=== PATIENT | female | born 1990 | race African-American/Black ===

== ENCOUNTER 2016-03-11 07:48 | Day surgery (SDC) | payer BC ==
[2016-03-11] MEDS ORDERED: MIDAZOLAM 2 MG/2 ML VIAL ONE (09:33)
[2016-03-11] MEDS ORDERED: PROPOFOL 200 MG/20 ML VIAL ONE (09:33)
[2016-03-11] MEDS ORDERED: fentaNYL 100 MCG/2 ML INJ ONE ×2 (09:33→10:58)
--- NOTE | 2016-03-11 11:23 | GPN ---
[f rep st] PROCEDURE NOTE DATE OF PROCEDURE: 03/11/2016 PROCEDURE: Esophagogastroduodenoscopy with biopsy. INDICATION: The patient is a 25-year-old female who presents with complaints of nausea, vomiting, and diarrhea. CONSENT: Risks, benefits, and alternatives of the procedure were discussed in great detail with the patient. Risks of infection, bleeding, perforation, and sedation were discussed. All questions were answered. Informed consent was obtained. MEDICATIONS: Propofol. Please see Anesthesiology report for details. ESTIMATED BLOOD LOSS: Insignificant. ESOPHAGOGASTRODUODENOSCOPY EXAMINATION: The Olympus upper endoscope was introduced into the mouth and advanced to the esophagus. The proximal, mid, and distal esophagus were normal in appearance. The stomach was entered and closely examined, including retroflexed views of angularis, cardia and fundus. She was noted to have a small hiatal hernia. The mucosa in the antrum and the body of stomach was erythematous in a patchy distribution and biopsies were taken. In the duodenal bulb on the anterior wall, mild nodularity was noted and biopsies were taken. The second portion duodenum was normal in appearance. Biopsies were taken to rule out celiac sprue. IMPRESSION: 1. Gastritis, status post biopsy. 2. Hiatal hernia. 3. Biopsies taken to rule out celiac sprue. 4. Nodularity noted in the duodenal bulb status post biopsy. 5. No obvious cause of her symptoms seen. RECOMMENDATION: 1. Await biopsy results. 2. Proceed with colonoscopy. 3. More recommendations on colonoscopy report. /[id number]/MODL MTDD
--- NOTE | 2016-03-16 07:36 | GPN ---
[f rep st] PROCEDURE NOTE DATE OF PROCEDURE: 03/11/2016 PROCEDURE: Colonoscopy with biopsy. INDICATION: The patient is a 25-year-old female who presents with complaints of diarrhea and abdominal pain. She had recent blood work which revealed a CRP of greater than 200. She presents for further evaluation. CONSENT: Risks, benefits, and alternatives of the procedure were discussed in great detail with the patient. Risk of infection, bleeding, perforation, and sedation were discussed. All questions answered. Informed consent obtained. MEDICATIONS: Propofol. Please see anesthesiology for details. ESTIMATED BLOOD LOSS: Insignificant. COLONOSCOPIC EVALUATION: A rectal exam was done and no palpable mass was felt. The scope was introduced into the rectum and advanced to the terminal ileum. The terminal ileum was normal in appearance and biopsies were taken. The mucosa from the rectum to the cecum was erythematous, friable, with loss of vascular pattern and had superficial ulcerations consistent with severe colitis. The rectum appeared to be slightly less inflamed than the rest of the colon. Multiple biopsies were taken throughout the colon. IMPRESSION: 1. Colitis status post biopsy. Suspect Ulcerative colitis? 2. Biopsies taken of the ileum. 3. Suspected this is inflammatory bowel disease. Prior stool studies are negative. RECOMMENDATIONS: 1. Follow up on biopsy results. 2. Start prednisone. 3. Follow up in the office in 2 weeks. /[id number]/MODL MTDD
== END 2016-03-11 12:30 | disposition home or self-care (01) ==
LOC: FSGY 07:48
PROVIDERS: ATTEND Internal Medicine Gastroenterology
PROC: 0DBB8ZX Excision of Ileum, Via Natural or Artificial Opening Endoscopic, Diagnostic (ICD-10-PCS; 2016-03-11)
PROC: 0DBP8ZX Excision of Rectum, Via Natural or Artificial Opening Endoscopic, Diagnostic (ICD-10-PCS; 2016-03-11)
PROC: 0DBE8ZX Excision of Large Intestine, Via Natural or Artificial Opening Endoscopic, Diagnostic (ICD-10-PCS; 2016-03-11)
PROC: 0DB68ZX Excision of Stomach, Via Natural or Artificial Opening Endoscopic, Diagnostic (ICD-10-PCS; principal; 2016-03-11 09:15)
PROC: 0DB98ZX Excision of Duodenum, Via Natural or Artificial Opening Endoscopic, Diagnostic (ICD-10-PCS; 2016-03-11 09:15)
DX: K52.9 Noninfective gastroenteritis and colitis, unspecified (principal); K29.70 Gastritis, unspecified, without bleeding; R19.7 Diarrhea, unspecified; R11.2 Nausea with vomiting, unspecified; R10.30 Lower abdominal pain, unspecified; R63.4 Abnormal weight loss; R19.4 Change in bowel habit; K22.9 Disease of esophagus, unspecified; R79.82 Elevated C-reactive protein (CRP); K44.9 Diaphragmatic hernia without obstruction or gangrene; K31.89 Other diseases of stomach and duodenum
CPT/HCPCS: J2250; J2704; J3010